=== PATIENT | female | born 1965 | race African-American/Black ===

== ENCOUNTER 2023-08-04 12:25 | Emergency (ER) | payer MEDICAID ==
[~2023-08-04] VITALS: Ht 152.4 cm; Wt 63.5 kg
[2023-08-04 12:40] VITALS: TEMP 98.2; O2SAT 97
[2023-08-04] MEDS ORDERED: CEPH500C2 MT (13:26)
[2023-08-04] MEDS ORDERED: SULF1TAB48 MT (13:26)
[2023-08-04] MEDS ORDERED: MUPI1OIN4 TP (13:26)
[2023-08-04 14:46] VITALS: BP 148/77; PULSE 64; RESP 18
== END 2023-08-04 14:50 | disposition home or self-care (01) ==
LOC: ER 12:25
DX: L72.3 Sebaceous cyst (principal)
CPT/HCPCS: 99283

== ENCOUNTER 2025-03-07 15:31 | Emergency (ER) | payer MEDICAID ==
[~2025-03-07] VITALS: Ht 160 cm; Wt 62.0 kg
[~2025-03-07 15:31] MED LIST: CEPH500C2 MT; MUPI1OIN4 TP; SULF1TAB48 MT
[2025-03-07 15:36] VITALS: O2SAT 98
[2025-03-07 16:05] LABS: BASOPHILS % 0.6 % (0.0-2.0); EOSINOPHILS % 0.7 % (0.0-5.0); HEMATOCRIT. 36.8 % (36.0-48.0); HEMOGLOBIN. 12.5 g/dL (12.0-16.0); LYMPHOCYTES % 42.8 % (20.0-50.0); MEAN PLATELET VOLUME 9.0 fl (7.4-10.4); MONOCYTES % 5.3 % (2.0-8.0); NEUTROPHILS % 50.6 % (40.0-76.0); PLATELET 220 x1000/uL (130-400); RED BLOOD CELL COUNT 4.47 mill/uL (4.2-5.4); RED CELL DISTRIBUTION WIDTH 12.9 % (11.6-14.6)
[2025-03-07 16:19] LABS: CREATININE 0.9 mg/dL (0.6-1.0)
[2025-03-07 16:20] LABS: UREA NITROGEN BLOOD 12 mg/dL (9-23)
[2025-03-07 16:21] LABS: TROPONIN I HIGH SENSITIVITY < 4 ng/L (3.0-34)
[2025-03-07] MEDS: IBUPROFEN 400MG TABLET PO ONE (17:47)
[2025-03-07] MEDS ORDERED: IBUP-2028 MT (18:08)
[2025-03-07 18:20] VITALS: BP 145/71; PULSE 56; RESP 16; TEMP 37.2; O2SAT 100
== END 2025-03-07 18:27 | disposition home or self-care (01) ==
LOC: ER 15:31
DX: M25.511 Pain in right shoulder (principal); Z79.899 Other long term (current) drug therapy
CPT/HCPCS: 36415; 71045; 73030; 80048; 84484; 85025; 93005; 99285